=== PATIENT | female | born 1945 | race Caucasian/White ===

== ENCOUNTER 2019-02-06 17:39 | Emergency (ER) | payer MEDICARE, OTHER ==
[~2019-02-06] VITALS: Wt 88.9 kg
[~2019-02-06 17:39] MED LIST: CIPR500T4 PO; ESCI10TA PO; HYDR25TA6 PO; LOSA50TA2 PO; METR500T PO; TRAZ-111 PO
[2019-02-06] MEDS ORDERED: morphine 4 MG/ML VIAL IV STA (20:59)
[2019-02-06] MEDS ORDERED: ONDANSETRON 4 MG INJ IV STA (20:59)
[2019-02-06] MEDS ORDERED: KETOROLAC 30 MG INJ IV STA (21:53)
[2019-02-06] MEDS ORDERED: ATOR10TA65 PO (22:54)
[2019-02-06] MEDS ORDERED: TRET15GE (22:54)
[2019-02-06] MEDS ORDERED: ESOM40CA PO (22:54)
[2019-02-06] MEDS ORDERED: MV M PO (22:58)
[2019-02-06] MEDS ORDERED: ASCO500C7 PO (22:58)
[2019-02-06] MEDS ORDERED: ONDA4TAB14 PO (23:07)
[2019-02-06] MEDS ORDERED: CIPR500T4 PO (23:07)
[2019-02-06] MEDS ORDERED: TRAM50TA2 PO (23:07)
--- NOTE | 2019-02-06 23:10 | ERD ---
ER Documentation Chief Complaint Chief Complaint ap and back pain x 1 week; hx of diverticulosis; n/v/diarrhea HPI Patient is a 73-year-old female with a history of diverticulitis and hypertension who presents with abdominal pain. She has right-sided abdominal pain and says that this feels like previous diverticulitis. She has no fevers. She said the symptoms started 3 days ago but are worsening. She has had no treatment as of yet. She denies rectal bleeding. Her primary doctor is Dr. Darby. ROS All systems reviewed and are negative except as per history of present illness. Medications Home Meds Active Scripts Ondansetron (Ondansetron Odt) 4 Mg Tab.rapdis, 4 MG PO Q6H PRN for NAUSEA AND/OR VOMITING, #10 TAB Prov:TERESA TREJO MD 02/06/19 Tramadol HCl (Tramadol HCl) 50 Mg Tablet, 50 MG PO Q4 PRN for PAIN, #20 TAB Prov:TERESA TREJO MD 02/06/19 Ciprofloxacin Hcl* (Ciprofloxacin Hcl*) 500 Mg Tablet, 500 MG PO BID for 7 Days, TAB Prov:TERESA TREJO MD 02/06/19 Reported Medications Mv-Mn/Iron/Fa/Herbal Cmplx#190 (VITAMIN D3 COMPLETE CAPLET) 1 Each Tablet, 1 EACH PO DAILY, TAB 02/06/19 Ascorbic Acid* (Vitamin C*) 500 Mg Capsule.sa, 500 MG PO DAILY, CAP 02/06/19 Tretinoin* (Tretinoin* Gel) 0.025% - 15 Gm Gel..gram., for 15 Days DIRECTED BY 02/06/19 Esomeprazole Mag Trihydrate (Nexium) 40 Mg Capsule.dr, 40 MG PO DAILY, #30 CAP 02/06/19 Atorvastatin Calcium (Atorvastatin Calcium) 10 Mg Tablet, 5 MG PO QHS, #30 TAB 02/06/19 Escitalopram Oxalate* (Lexapro*) 10 Mg Tablet, 10 MG PO DAILY, TAB 01/03/15 Hydrochlorothiazide* (Hydrochlorothiazide*) 25 Mg Tab, 25 MG PO DAILY, TAB 12/30/14 Losartan Potassium* (Cozaar*) 50 Mg Tablet, 50 MG PO DAILY, TAB 12/30/14 Trazodone Hcl* (Trazodone Hcl*) 50 Mg Tablet, 25 MG PO HS, TAB TAKE ONE HALF TABLET BY MOUTH AT BEDTIME 12/30/14 Discontinued Scripts Metronidazole* (Flagyl*) 500 Mg Tab, 500 MG PO TID for 7 Days Prov:MOYATIMBO [employer] OPERATOR 01/07/15 Ciprofloxacin Hcl* (Ciprofloxacin Hcl*) 500 Mg Tab, 500 MG PO BID@06,18 for 7 Days Prov:MOYATIMBO Tatyana [employer] OPERATOR 01/07/15 Allergies Allergies: Coded Allergies: Sulfa (Sulfonamide Antibiotics) (Unverified Allergy, Severe, HIVES,BUMPS, 02/06/19) PMhx/Soc History of Surgery: Yes (CHOLECYSTECTOMY, VARICOSE VEIN SX) Anesthesia Reaction: No Hx Neurological Disorder: No Hx Respiratory Disorders: Yes (BRONCHITIS) Hx Cardiac Disorders: Yes (HTN) Hx Psychiatric Problems: Yes (DEPRESSION) Hx Miscellaneous Medical Probl: No Hx Alcohol Use: No Hx Substance Use: No Hx Tobacco Use: No FmHx Family History: No diabetes Physical Exam Vitals Vital Signs Date Temp Pulse Resp B/P (MAP) Pulse Ox O2 O2 Flow FiO2 Time Delivery Rate 02/06/19 97.7 77 20 136/77 98 17:56 (96) Physical Exam Const: Moderate distress Head: Atraumatic Eyes: Normal Conjunctiva ENT: Normal External Ears, Nose and Mouth. Neck: Full range of motion. No meningismus. Resp: Clear to auscultation bilaterally Cardio: Regular rate and rhythm, no murmurs Abd: Soft, right lower quadrant and left lower quadrant tenderness to palpation without rebound or guarding Skin: No petechiae or rashes Back: No midline or flank tenderness Ext: No cyanosis, or edema Neur: Awake and alert Psych: Normal Mood and Affect Result Diagram: 02/06/192106 Results 24 hrs Laboratory Tests Test 02/06/19 21:07 White Blood Count 8.4 10^3/ul Red Blood Count 4.66 10^6/ul Hemoglobin 13.9 g/dl Hematocrit 42.7 % Mean Corpuscular Volume 91.6 fl Mean Corpuscular Hemoglobin 29.8 pg Mean Corpuscular Hemoglobin Concent 32.6 g/dl Red Cell Distribution Width 13.1 % Platelet Count 349 10^3/UL Mean Platelet Volume 9.9 fl Immature Granulocytes % 0.200 % Neutrophils % 42.6 % Lymphocytes % 46.6 % Monocytes % 7.7 % Eosinophils % 2.3 % Basophils % 0.6 % Nucleated Red Blood Cells % 0.0 /100WBC Immature Granulocytes # 0.020 10^3/ul Neutrophils # 3.6 10^3/ul Lymphocytes # 3.9 10^3/ul Monocytes # 0.6 10^3/ul Eosinophils # 0.2 10^3/ul Basophils # 0.1 10^3/ul Nucleated Red Blood Cells # 0.0 10^3/ul Urine Color YELLOW Urine Clarity CLEAR Urine pH 6.0 Urine Specific Cuthbert 1.009 Urine Ketones NEGATIVE mg/dL Urine Nitrite NEGATIVE mg/dL Urine Bilirubin NEGATIVE mg/dL Urine Urobilinogen NEGATIVE mg/dL Urine Leukocyte Esterase NEGATIVE Judd/ul Urine Hemoglobin NEGATIVE mg/dL Urine Glucose NEGATIVE mg/dL Urine Total Protein NEGATIVE mg/dl Current Medications Medications Dose Sig/Felisha Start Time Status Last (Trade) Ordered Route PRN Stop Time Admin Dose Reason Admin Morphine 4 mg ONCE STAT 02/06/19 DC 02/06/19 Sulfate IV 20:59 22:16 (morphine) 02/06/19 21:00 Ondansetron 4 mg ONCE STAT 02/06/19 DC 02/06/19 HCl (Zofran IV 20:59 22:16 Inj) 02/06/19 21:00 Ketorolac 30 mg ONCE STAT 02/06/19 DC 02/06/19 Tromethamine IV 21:53 22:16 (Toradol) 02/06/19 21:54 Procedures/MDM EKG read by me: Rate/Rhythm: Sinus bradycardia rate of 58 Intervals: Normal Impression: Bradycardia without ischemia CT abdomen pelvis shows mild diverticulitis per radiology. Patient is a 73-year-old female who presents with abdominal pain. The patient has a normal white blood cell count and a CT scan which shows mild diverti culitis. She has no fever here in the emergency department and no abscess or perforation seen on CT scan. I believe the patient will likely be stable for outpatient management as long as her CMP and lipase are within reasonable limits. The patient was given Toradol and Zofran for symptom medic relief. She refused morphine. If discharge she will be given a prescription for Cipro, Flagyl, tramadol, and Zofran. She can return for any worsening symptoms. She should follow-up with her primary doctor within 24 hours for reevaluation. I doubt appendicitis, perforation, or bowel obstruction. Departure Diagnosis: Primary Impression: Diverticulitis Additional Impression: Abdominal pain Abdominal location: generalized Qualified Codes: R10.84 - Generalized abdominal pain Condition: Fair Patient Instructions: Abdominal Pain, Diverticulitis Referrals: Dr. Darby Additional Instructions: Llame al doctor MAANA y sarah kalpesh MARGE PARA DENTRO DE 1-2 TRIMBLE.Dgale a la secretaria que nosotros le instruimos hacer esta marge.Avise o llame si robbins condicin se empeora antes de la marge. Regresa aqui si peor o no mejor. TERESA TREJO MD Feb 06, 2019 23:10
[2019-02-06] MEDS ORDERED: METR500T PO (23:11)
[2019-02-06 23:45] VITALS: BP 144/67; PULSE 64; RESP 16
== END 2019-02-06 23:45 | disposition home or self-care (01) ==
LOC: E/R 17:39
DX: K57.32 Diverticulitis of large intestine without perforation or abscess without bleeding (principal); I10 Essential (primary) hypertension
CPT/HCPCS: 36415; 74176; 80053; 81003; 83690; 84484; 85025; 93005; 96374; 96375; 99285; J1885; J2270; J2405